=== PATIENT | male | born 1990 | race Two or more races ===

== ENCOUNTER 2021-03-01 11:42 | Emergency (ER) | payer OTHER ==
[~2021-03-01] VITALS: Ht 177.8 cm; Wt 79.4 kg
[2021-03-01] MEDS ORDERED: KETO10TA2 PO (16:18)
[2021-03-01] MEDS ORDERED: CIPRO500 MG PO (16:18)
== END 2021-03-01 16:26 | disposition home or self-care (01) ==
LOC: ER 11:42
DX: R10.32 Left lower quadrant pain (principal)